=== PATIENT | female | born 1960 | race Caucasian/White ===

== ENCOUNTER 2017-08-10 11:51 | Inpatient (IN) | payer OTHER ==
[2017-08-10] VITALS (8 sets, daily range): BP systolic 98–154; BP diastolic 46–76
[~2017-08-10] VITALS: Ht 165.1 cm; Wt 69.8 kg
[2017-08-10 12:22] LABS: HEMATOCRIT 39.4 % (36.0-46.0); HEMOGLOBIN 13.4 G/DL (11.9-15.5); MCH 31.1 PG (29.0-34.0); MCV 91.4 FL (83-99); PLATELET COUNT 286 K/uL (156-360); RBC DIS.WIDTH-CV 12.5 % (11.8-14.6); RBC DIS.WIDTH-SD 42.6 % (39-53); RED BLOOD COUNT 4.31 M/uL (3.80-5.20); WHITE BLOOD COUNT 11.7 K/uL (4.1-10.2)
[2017-08-10 12:36] LABS: CHLORIDE 105 mEq/L (99-109); POTASSIUM 4.6 mEq/L (3.7-5.4); SODIUM 137 mEq/L (136-147)
[2017-08-10 12:37] LABS: GLUCOSE 121 mg/dL (70-99)
[2017-08-10 12:41] LABS: CREATININE 0.9 mg/dL (0.6-1.3); GFR ESTIMATE (CALCULATED) > 59 mL/min/
[2017-08-10 12:42] LABS: UREA NITROGEN (BUN) 19 mg/dL (9-23)
[2017-08-10 12:44] LABS: TROP-I INTERPRETATION NEGATIVE; TROPONIN-I < 0.01 ng/mL (0.0-0.30)
[2017-08-10] MEDS ORDERED: SUPER GINSENG1 EACH PO (15:11)
[2017-08-10] MEDS ORDERED: SYNTHROID25 MCG PO (15:11)
[2017-08-10 15:24] LABS: TROP-I INTERPRETATION NEGATIVE; TROPONIN-I < 0.01 ng/mL (0.0-0.30)
[2017-08-11] VITALS (14 sets, daily range): BP systolic 104–136; BP diastolic 53–81
[2017-08-12 03:45] VITALS: BP 119/65
[2017-08-12 06:49] LABS: BASOPHIL (%) 0 % (0-1); EOSINOPHIL (%) 0 % (0-5); HEMATOCRIT 33.7 % (36.0-46.0); HEMOGLOBIN 11.2 G/DL (11.9-15.5); IMMATURE GRANULOCYTE (%) 0.3 % (0.0-0.7); LYMPHOCYTE (%) 21.6 % (15-42); LYMPHOCYTE COUNT 1.4 K/uL (1.0-2.8); MCH 30.6 PG (29.0-34.0); MCHC 33.2 G/DL (30.0-36.0); MCV 92.1 FL (83-99); MONOCYTE (%) 6.6 % (3-12); MONOCYTE COUNT 0.4 K/uL (0-0.8); NEUTROPHIL (%) 71.5 % (45-76); NEUTROPHIL COUNT 4.7 K/uL (1.8-6.4); PLATELET COUNT 262 K/uL (156-360); RBC DIS.WIDTH-CV 13.1 % (11.8-14.6); RBC DIS.WIDTH-SD 44.7 % (39-53); RED BLOOD COUNT 3.66 M/uL (3.80-5.20); WHITE BLOOD COUNT 6.6 K/uL (4.1-10.2)
[2017-08-12 07:25] LABS: CHLORIDE 108 MEQ/L (99-109); CREATININE 0.9 MG/DL (0.6-1.3); GFR ESTIMATE (CALCULATED) > 59 mL/min/; GLUCOSE 118 mg/dL (70-99); POTASSIUM 4.2 MEQ/L (3.7-5.4); SODIUM 143 MEQ/L (136-147); UREA NITROGEN (BUN) 19 mg/dL (9-23)
[2017-08-12 09:10] VITALS: BP 107/61
[2017-08-12] MEDS ORDERED: EPIPEN ADU0.3 MG/0.3 IM (09:39)
[2017-08-12] MEDS ORDERED: FAMOTIDINE20 MG PO (09:39)
[2017-08-12] MEDS ORDERED: BENADRYL25 MG PO (09:41)
[2017-08-12] MEDS ORDERED: METHYLPREDNISOLO4 MG PO (09:41)
[2017-08-12] MEDS ORDERED: METHYLPREDNISOL16 MG PO (09:41)
== END 2017-08-12 10:44 | disposition home or self-care (01) | DRG 915 ==
LOC: EME 11:51 → EDOF 14:52 → 2EASTP 14:52 → ENRESERV 14:58 → 4WEST 15:47 → ENRESERV 08-11 14:08 → 2EASTP 08-11 15:51 → ENRESERV 08-11 16:06 → ENPENDDIS 08-12 → 2EASTP 08-12 10:44
PROVIDERS: Emergency Medicine; Internal Medicine
DX: T78.04XA Anaphylactic reaction due to fruits and vegetables, initial encounter (principal); J96.90 Respiratory failure, unspecified, unspecified whether with hypoxia or hypercapnia; T78.3XXA Angioneurotic edema, initial encounter; R73.9 Hyperglycemia, unspecified; T38.0X5A Adverse effect of glucocorticoids and synthetic analogues, initial encounter; J45.909 Unspecified asthma, uncomplicated; J98.8 Other specified respiratory disorders
CPT/HCPCS: 71046; 80048; 82948; 83520 90; 84484; 85025; 85027; 87641; 93005; 99281; 99284; J1200; J2930; J7030; J7509; S0028